=== PATIENT | male | born 1990 | race African-American/Black ===

== ENCOUNTER 2017-10-20 12:39 | Emergency (ER) | payer SELFPAY ==
[2017-10-20] MEDS ORDERED: LIDOCAINE WITH 8.4% SOD BICARB 3 ML DISP.SYRIN. (13:02)
[2017-10-20] MEDS: LIDOCAINE WITH 8.4% SOD BICARB 3 ML DISP.SYRIN. INJ (13:05)
[2017-10-20] MEDS: IBUPROFEN 800 MG TABLET. PO (13:05)
== END 2017-10-20 14:03 | disposition home or self-care (01) ==
LOC: ER 12:39
DX: L02.511 Cutaneous abscess of right hand (principal); J45.909 Unspecified asthma, uncomplicated
CPT/HCPCS: 26010; 99283

== ENCOUNTER 2020-09-10 12:31 | Emergency (ER) | payer SELFPAY ==
[~2020-09-10] VITALS: Ht 175.3 cm; Wt 55.7 kg
[~2020-09-10 12:31] MED LIST: CEPH500T PO; IBUP-1060 PO; SULF1TAB24 PO
[2020-09-10] MEDS ORDERED: IV NORMAL SALINE 1000ML BAG 1,000 ML IV ONE (12:45)
[2020-09-10] MEDS ORDERED: IV NORMAL SALINE 1000ML BAG 1,000 ML IV SCH (12:45)
[2020-09-10] MEDS ORDERED: FAMOTIDINE 20 MG/2 ML VIAL IVP ONE (12:45)
[2020-09-10] MEDS ORDERED: ONDANSETRON PF 4 MG/2 ML VIAL. IVP ONE (12:45)
--- NOTE | 2020-09-10 12:52 | PHYS DOC ---
Past Medical History Past Medical History: Asthma Past Surgical History: No Surgical History Smoking Status: Current Every Day Smoker Alcohol Use: Occasionally Drug Use: None General Adult EDM: Chief Complaint: NAUSEA/VOMITING/DIARRHA HPI: HPI: Patient is a 30 year old male who presents with 4 days of vomiting and diarrhea. 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 He states that the pain in his abdomen feels like a squeezing type pain. He states that the pain is started in the left lower quadrant but is now in the epigastric area. Patient denies any blood in his stool or vomit. Patient is not taking any medications to help his symptoms. Patient currently rates his pain a 9 out of 10. He states that he has been trying to eat crackers, grapes, soup and drink water but it did not stay down. Patient denies shortness of breath, chest pain, cough, fever, back pain, body aches, dizziness, headache, numbness or tingling, syncope. Patient has a history of asthma and is a smoker. Review of Systems: Review of Systems: Constitutional: Denies fever or chills. [] Eyes: Denies change in visual acuity. [] HENT: Denies nasal congestion or sore throat. [] Respiratory: Denies cough or shortness of breath. [] Cardiovascular: Denies chest pain or edema. [] GI: + abdominal pain, +nausea, +vomiting, denies bloody stools or +diarrhea. [] : Denies dysuria. [] Musculoskeletal: Denies back pain or joint pain. [] Integument: Denies rash. [] Neurologic: Denies headache, focal weakness or sensory changes. [] Endocrine: Denies polyuria or polydipsia. [] Lymphatic: Denies swollen glands. [] Psychiatric: Denies depression or anxiety. [] Heart Score: Risk Factors: Risk Factors: DM, Current or recent (<one month) smoker, HTN, HLP, family history of CAD, obesity. Risk Scores: Score 0 - 3: 2.5% MACE over next 6 weeks - Discharge Home Score 4 - 6: 20.3% MACE over next 6 weeks - Admit for Clinical Observation Score 7 - 10: 72.7% MACE over next 6 weeks - Early Invasive Strategies Allergies: Allergies: Allergies Coded Allergies Type Severity Reaction Last Updated Verified No Known Drug Allergies 02/22/15 No Physical Exam: PE: Constitutional: Well developed, well nourished, no acute distress, non-toxic appearance. [] HENT: Normocephalic, atraumatic, bilateral external ears normal, oropharynx moist, no oral exudates, nose normal. [] Eyes: PERRLA, EOMI, conjunctiva normal, no discharge. [] Neck: Normal range of motion, no tenderness, supple, no stridor. [] Cardiovascular:Heart rate regular rhythm, no murmur [] Lungs & Thorax: Bilateral breath sounds clear to auscultation [] Abdomen: Bowel sounds normal, soft, epigastric tenderness, no masses, no pulsatile masses. [] Skin: Warm, dry, no erythema, no rash. [] Back: No tenderness, no CVA tenderness. [] Extremities: No tenderness, no cyanosis, no clubbing, ROM intact, no edema. [] Neurologic: Alert and oriented X 3, normal motor function, normal sensory function, no focal deficits noted. [] Psychologic: Affect normal, judgement normal, mood normal. [] EKG: EKG: [] Radiology/Procedures: Radiology/Procedures: [] Impression: [facility] [address] [place], [place] [id number] IMAGING REPORT Signed PATIENT: STEPHY ZUNIGA MACCOUNT: [id number] : 1990 LOCATION: ER AGE: 30 SEX: M EXAM STATUS: REG ER ORD. PHYSICIAN: JONI LAURA APRN REASON: abd pain, diarrhea, vomiting PROCEDURE: CT ABD PELV W/ IV CONTRST ONLY EXAMINATION: CT ABDOMEN+PELVIS W (CT ABDOMEN/PELVIS WITH IV CONTRAST) CLINICAL HISTORY: Abdominal pain, diarrhea, vomiting TECHNIQUE: CT of the abdomen and pelvis was performed using standard technique, scanning from just above the dome of the diaphragm to the symphysis pubis following administration of intravenous contrast. CT Dose Reduction Employed: One or more of the following individualized dose reduction techniques were utilized for this examination: 1. Automated exposure control 2. Adjustment of the mA and/or kV according to patient size 3. Use of iterative reconstruction technique. COMPARISON: CT abdomen/pelvis 02/22/2015 FINDINGS: Partially visualized heart and lung bases unremarkable. Liver, gallbladder, pancreas, spleen, adrenal glands, and kidneys unremarkable. Decompressed urinary bladder suboptimally evaluated. No bowel dilation or definite wall thickening. Probable partially visualized air-filled appendix. No abdominal aortic or iliac artery aneurysm. No lymphadenopathy. No evidence of acute osseous abnormality. IMPRESSION: No evidence of acute abdominopelvic abnormality. Electronically signed by: Edis Connors DO (09/10/2020 2:03 PM) [facility] DICTATED and SIGNED BY: EDIS CONNORS DO DATE: 09/10/20 [id number] 0 Course & Med Decision Making: Course & Med Decision Making Pertinent Labs and Imaging studies reviewed. (See chart for details) See HPI. Ambulatory with a steady gait. Speaks in full complete sentences. Skin pink warm and dry. Abdomen is soft but tender to the epigastric area. Patient seems to have a hard time getting comfortable in the bed due to to his abdominal discomfort. After medications given patient states he is feeling better and has no abdominal pain or nausea. He is able to drink a whole Sprite and keep it down here in the ED. CT abdomen pelvis shows no acute findings. Blood work is generally unremarkable. Patient was dehydrated and his gotten 2 bags of normal saline. Patient urinalysis did have some blood in it so the possibility that he could have passed a kidney stone because there is no kidney stone at this time on the CT scan. There is also no hydronephrosis. His urine does not look infected. I have spoken to Dr. Avila concerning patient care plan and findings. Patient is discharged home. [] Shan Disclaimer: Shan Disclaimer: This electronic medical record was generated, in whole or in part, using a voice recognition dictation system. 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 Drink plenty of fluids. Slowly advance your diet. JONI LAURA HEALTH INFORMATION TECHNICIAN Sep 10, 2020 12:51
[2020-09-10] MEDS ORDERED: IOHEXOL 300 MG/ML 100ML VIAL. IV ONE (13:30)
[2020-09-10] MEDS ORDERED: CONTRAST GIVEN. MC PRN (13:30)
--- NOTE | 2020-09-10 14:06 | RAD ---
EXAMINATION: CT ABDOMEN+PELVIS W (CT ABDOMEN/PELVIS WITH IV CONTRAST) CLINICAL HISTORY: Abdominal pain, diarrhea, vomiting TECHNIQUE: CT of the abdomen and pelvis was performed using standard technique, scanning from just ab ove the dome of the diaphragm to the symphysis pubis following administration of intravenous contrast . CT Dose Reduction Employed: One or more of the following individualized dose reduction techniques wer e utilized for this examination: 1. Automated exposure control 2. Adjustment of the mA and/or kV ac cording to patient size 3. Use of iterative reconstruction technique. COMPARISON: CT abdomen/pelvis 02/22/2015 FINDINGS: Partially visualized heart and lung bases unremarkable. Liver, gallbladder, pancreas, spleen, adrenal glands, and kidneys unremarkable. Decompressed urinary bladder suboptimally evaluated. No bowel dilation or definite wall thickening. Probable partially visualized air-filled appendix. No abdominal aortic or iliac artery aneurysm. No lymphadenopathy. No evidence of acute osseous abnormality. IMPRESSION: No evidence of acute abdominopelvic abnormality. Electronically signed by: Edis Vance DO (09/10/2020 2:03 PM) [facility]
[2020-09-10 14:15] VITALS: BP 121/66
[2020-09-10 14:34] LABS: BASO % 0 % (0-3); EOS % 0 % (0-3); HEMATOCRIT 39.1 % (39.0-53.0); HEMOGLOBIN 12.9 g/dL (13.0-17.5); LYMPH # 1.1 x10^3/uL (1.0-4.8); LYMPH % 11 % (24-48); MEAN CORPUSCULAR HEMOGLOBIN 31 pg (25-35); MEAN CORPUSCULAR HGB CONC 33 g/dL (31-37); MEAN CORPUSCULAR VOLUME 93 fL (79-100); MONO % 10 % (0-9); NEUT # 7.6 x10^3/uL (1.8-7.7); NEUT % 79 % (31-73); PLATELET COUNT 188 x10^3/uL (140-400); RED BLOOD COUNT 4.22 x10^6/uL (4.30-5.70); RED CELL DISTRIBUTION WIDTH 13.3 % (11.5-14.5); WHITE BLOOD COUNT 9.7 x10^3/uL (4.0-11.0)
[2020-09-10 14:36] LABS: BILIRUBIN,URINE NEGATIVE (NEG); CLARITY,URINE CLEAR; COLOR,URINE AMBER; NITRITE,URINE NEGATIVE (NEG); PROTEIN,URINE 100 mg/dL (NEG-TRACE); UROBILINOGEN,URINE 0.2 mg/dL (0.2 mg/dL)
[2020-09-10 14:44] LABS: BARBITURATES NEG (NEG); BENZODIAZEPINES NEG (NEG); CALCIUM 8.3 mg/dL (8.5-10.1); CANNABINOIDS POS (NEG); COCAINE NEG (NEG); CREATININE 1.1 mg/dL (0.7-1.3); GFR 93.9; METHADONE NEG (NEG); OPIATES NEG (NEG); PHENCYCLIDINE NEG (NEG); POTASSIUM 3.5 mmol/L (3.5-5.1)
[2020-09-10 14:45] LABS: AMPHETAMINE/METHAMPHETAMINE NEG (NEG)
[2020-09-10 14:46] LABS: BACTERIA,URINE 0 /HPF (0-FEW)
[2020-09-10 14:50] LABS: ALBUMIN 3.5 g/dL (3.4-5.0); ALBUMIN/GLOBULIN RATIO 1.1 (1.0-1.7); TOTAL BILIRUBIN 0.4 mg/dL (0.2-1.0); TOTAL PROTEIN 6.8 g/dL (6.4-8.2)
== END 2020-09-10 16:09 | disposition home or self-care (01) ==
LOC: ER 12:31
DX: K52.9 Noninfective gastroenteritis and colitis, unspecified (principal); R11.2 Nausea with vomiting, unspecified; J45.909 Unspecified asthma, uncomplicated; F17.200 Nicotine dependence, unspecified, uncomplicated
CPT/HCPCS: 36415; 74177; 80053; 80307; 81001; 83690; 85025; 87086; 96361; 96374; 96375; 99285; J2405; J3490; J7030; Q9967